=== PATIENT | male | born 1965 | race Caucasian/White ===

== ENCOUNTER 2020-12-23 03:01 | Emergency (ER) | payer OTHER ==
[~2020-12-23] VITALS: Ht 182.9 cm; Wt 108.9 kg
[2020-12-23] MEDS ORDERED: DEXAMETHASONE6 MG PO (04:37)
[2020-12-23] MEDS ORDERED: PROAIR HFA8.5 GM INH (04:37)
[2020-12-23 04:50] VITALS: BP 140/98
== END 2020-12-23 04:50 | disposition home or self-care (01) ==
LOC: M.ERS 03:01
DX: U07.1 COVID-19 (principal); J45.909 Unspecified asthma, uncomplicated; F17.200 Nicotine dependence, unspecified, uncomplicated